=== PATIENT | male | born 2000 | race African-American/Black ===

== ENCOUNTER 2021-10-29 14:31 | Emergency (ER) | payer SELFPAY ==
[2021-10-29] MEDS ORDERED: ONDANSETRON 4 MG (ODT) TAB ONE (15:44)
--- NOTE | 2021-10-29 16:26 | EDPHYS ---
Physician Documentation [facility] Name: Jairo Duckworth Age: 21 yrs Sex: Male : 2000 Arrival Date: 10/29/2021 Time: 14:34 Bed DIS1 Private MD: ED Physician Ryne Ventura HPI: 10/29 15:15 This 21 yrs old Black Male presents to ER via Ambulatory with complaints of Nausea. cp 15:15 The patient presents to the emergency department with nausea, that is mild. Onset: The cp symptoms/episode began/occurred 2 day(s) ago. Possible causes: unknown. Associated signs and symptoms: Pertinent positives: nasal congestion, fatigue, Pertinent negatives: diarrhea, fever, vomiting, cough. Severity of symptoms: in the emergency department the symptoms are unchanged despite home interventions. Historical: - Allergies: 14:46 No Known Allergies; ap3 - Home Meds: 14:46 None [Active]; ap3 - PMHx: 14:46 None; ap3 - Immunization history:: Client reports having NOT received the Covid vaccine. - Social history:: Smoking status: Patient denies any tobacco usage or history of. Patient uses street drugs, marijuana. ROS: 15:20 Constitutional: Positive for fatigue, Negative for body aches, chills, fever, poor PO cp intake. 15:20 Eyes: Negative for injury, pain, redness, and discharge. cp 15:20 ENT: Positive for nasal congestion, Negative for drainage from ear(s), ear pain, sore throat, difficulty swallowing, difficulty handling secretions. 15:20 Respiratory: Negative for cough, shortness of breath, wheezing. 15:20 Abdomen/GI: Positive for nausea, Negative for abdominal pain, vomiting, diarrhea, constipation. 15:20 Neuro: Negative for altered mental status, headache, weakness. 15:20 All other systems are negative. Exam: 15:20 Constitutional: The patient appears in no acute distress, alert, awake, comfortable, cp non-toxic, well developed, well nourished. 15:20 Head/Face: Normocephalic, atraumatic. cp 15:20 Eyes: Periorbital structures: appear normal, Conjunctiva: normal, no exudate, no injection, Lids and lashes: appear normal, bilaterally. 15:20 ENT: External ear(s): are unremarkable, Ear canal(s): are normal, clear, TM's: dullness, bilaterally, Nose: is normal, Mouth: Lips: moist, Oral mucosa: pink and intact, moist, Posterior pharynx: Airway: no evidence of obstruction, patent, Tonsils: are normal in appearance, erythema, is not appreciated, exudate, is not appreciated. 15:20 Neck: Lymph nodes: no appreciated lymphadenopathy. 15:20 Chest/axilla: Inspection: normal. 15:20 Cardiovascular: Rate: tachycardic, Rhythm: regular. 15:20 Respiratory: the patient does not display signs of respiratory distress, Respirations: normal, no use of accessory muscles, no retractions, labored breathing, is not present, Breath sounds: are clear throughout, no decreased breath sounds, no stridor, no wheezing. 15:20 Abdomen/GI: Inspection: abdomen appears normal, Palpation: abdomen is soft and non-tender, in all quadrants. Vital Signs: 14:45 BP 118 / 78; Pulse 117; Resp 17; Temp 98.8; Pulse Ox 100% ; Weight 83.91 kg; Height 6 ap3 ft. 0 in. (182.88 cm); 15:40 BP 120 / 69; Pulse 88; Resp 16; Temp 98.2; Pulse Ox 99% on R/A; iw 14:45 Body Mass Index 25.09 (83.91 kg, 182.88 cm) ap3 MDM: 14:50 Patient medically screened. cp 15:30 Differential diagnosis: gastritis, viral gastroenteritis, gastroenteritis, influenza, cp COVID-19. 16:25 Data reviewed: vital signs, nurses notes, lab test result(s). cp 16:25 Counseling: I had a detailed discussion with the patient and/or guardian regarding: the cp historical points, exam findings, and any diagnostic results supporting the discharge/admit diagnosis, lab results, to return to the emergency department if symptoms worsen or persist or if there are any questions or concerns that arise at home. 10/29 15:08 Order name: COVID-19 SARS RT PCR (Document "Date of Onset" if Symptomatic); Complete cp Time: 16:19 10/29 16:19 Interpretation: Reviewed. cp 10/29 15:08 Order name: Influenza Screen (a \\T\\ B); Complete Time: 16:19 cp 10/29 16:19 Interpretation: Reviewed. cp Administered Medications: 15:42 Drug: Zofran (Ondansetron) 4 mg Route: PO; iw 16:30 Follow up: Response: No adverse reaction aa5 Disposition Summary: 10/29/21 16:25 Discharge Ordered Location: Home cp Problem: new cp Symptoms: have improved cp Condition: Stable cp Diagnosis - Nausea cp Followup: cp - With: Private Physician - When: 1 - 2 days - Reason: Worsening of condition Discharge Instructions: - Discharge Summary Sheet cp - Nausea, Adult cp Forms: - Medication Reconciliation Form cp - Thank You Letter cp - Work release form iw - Antibiotic Education cp - Prescription Opioid Use cp Prescriptions: - Zofran 4 mg Oral Tablet - take 1 tablet by ORAL route every 12 hours As needed; 10 tablet; Refills: 0, cp Product Selection Permitted Addendum: 10/30/2021 23:25 Co-signature as Attending Physician, Ryne Ventura MD. r n Signatures: Dispatcher [employer] Clara Olson RN RN iw Ryne Ventura MD MD rn Page, Corey, PA PA Stephanie Valenzuela RN RN ap3 Leslie Castillo RN aa5
--- NOTE | 2021-10-29 16:26 | ER ---
Nurse's Notes [facility] Name: Jairo Duckworth Age: 21 yrs Sex: Male : 2000 Arrival Date: 10/29/2021 Time: 14:34 Bed DIS1 Private MD: Diagnosis: Nausea Presentation: 10/29 14:45 Chief complaint: Patient states: he has been feeling tired and weak lately. patient ap3 states he is sometimes nauseous as well. Patient also reports congestion. Coronavirus screen: Client presents with at least one sign or symptom that may indicate coronavirus-19. Ebola Screen: No symptoms or risks identified at this time. Initial Sepsis Screen: Does the patient meet any 2 criteria? No. Patient's initial sepsis screen is negative. Does the patient have a suspected source of infection? No. Patient's initial sepsis screen is negative. Risk Assessment: Do you want to hurt yourself or someone else? Patient reports no desire to harm self or others. Onset of symptoms was October 27, 2021. 14:45 Method Of Arrival: Ambulatory ap3 14:45 Acuity: KIRBY 4 ap3 Triage Assessment: 14:47 General: Appears in no apparent distress. Behavior is calm, cooperative. Pain: Denies ap3 pain. Neuro: Level of Consciousness is awake, alert, obeys commands, Oriented to person, place, time, situation, Appropriate for age Gait is steady, Speech is normal. Cardiovascular: Patient's skin is warm and dry. Respiratory: Airway is patent Respiratory effort is even, unlabored. GI: Reports nausea. Historical: - Allergies: 14:46 No Known Allergies; ap3 - Home Meds: 14:46 None [Active]; ap3 - PMHx: 14:46 None; ap3 - Immunization history:: Client reports having NOT received the Covid vaccine. - Social history:: Smoking status: Patient denies any tobacco usage or history of. Patient uses street drugs, marijuana. Screenin:47 Abuse screen: Denies threats or abuse. Nutritional screening: No deficits noted. ap3 Tuberculosis screening: No symptoms or risk factors identified. Fall Risk None identified. Assessment: 15:00 General: Appears comfortable, Behavior is calm, cooperative, Reports fatigue for. Pain: aa5 Denies pain. Neuro: Level of Consciousness is awake, alert, obeys commands, Oriented to person, place, time, situation. Cardiovascular: Heart tones S1 S2 present Rhythm is regular. Respiratory: Airway is patent Respiratory effort is even, unlabored, Respiratory pattern is regular, symmetrical. GI: Abdomen is non-distended, Bowel sounds present X 4 quads. Abd is soft and non tender X 4 quads. Reports nausea. : No signs and/or symptoms were reported regarding the genitourinary system. EENT: No signs and/or symptoms were reported regarding the EENT system. Derm: Skin is dry, Skin is normal, Skin temperature is warm. Musculoskeletal: Range of motion: intact in all extremities. 15:41 General: Appears in no apparent distress. Behavior is calm, cooperative. Neuro: iw Kidd Agitation-Sedation Scale (RASS): Level of Consciousness is awake, alert, obeys commands, Oriented to person, place, time, situation. Cardiovascular: Patient's skin is warm and dry. Respiratory: Airway is patent. GI: Abdomen is non-distended. Musculoskeletal: Range of motion: intact in all extremities. 16:30 Neuro: Level of Consciousness is awake, alert, obeys commands, Oriented to person, aa5 place, time, situation. Respiratory: Airway is patent Respiratory effort is even, unlabored, Respiratory pattern is regular, symmetrical. Derm: Skin is dry, Skin is normal, Skin temperature is warm. Vital Signs: 14:45 BP 118 / 78; Pulse 117; Resp 17; Temp 98.8; Pulse Ox 100% ; Weight 83.91 kg; Height 6 ap3 ft. 0 in. (182.88 cm); 15:40 BP 120 / 69; Pulse 88; Resp 16; Temp 98.2; Pulse Ox 99% on R/A; iw 14:45 Body Mass Index 25.09 (83.91 kg, 182.88 cm) ap3 ED Course: 14:34 Patient arrived in ED. rg4 14:38 Enoch Tariq PA is PHCP. cp 14:38 Ryne Ventura MD is Attending Physician. cp 14:46 Triage completed. ap3 14:47 Arm band placed on right wrist. ap3 14:51 Leslie Castillo, RN is Primary Nurse. aa5 15:00 Patient has correct armband on for positive identification. aa5 15:15 Influenza Screen (a \\T\\ B) Sent. iw 15:15 COVID-19 SARS RT PCR (Document "Date of Onset" if Symptomatic) Sent. iw 16:25 No provider procedures requiring assistance completed. Patient did not have IV access aa5 during this emergency room visit. Administered Medications: 15:42 Drug: Zofran (Ondansetron) 4 mg Route: PO; iw 16:30 Follow up: Response: No adverse reaction aa5 Medication: 14:47 VIS not applicable for this client. ap3 Outcome: 16:25 Discharge ordered by . stacey 16:30 Discharged to home ambulatory. aa5 16:30 Condition: good 16:30 Discharge instructions given to patient, Instructed on discharge instructions, follow up and referral plans. medication usage, Demonstrated understanding of instructions, follow-up care, medications, Prescriptions given X 1. 16:33 Patient left the ED. aa5 Signatures: Clara Gibbons, RN RN iw Leslie Castillo RN RN aa5 Enoch Tariq PA PA cp Garcia, Rubi rg4 Stephanie Colon RN RN ap3
[2021-10-29 17:10] VITALS: BP 120/69; TEMP 98.2; O2SAT 99
== END 2021-10-29 16:33 | disposition home or self-care (01) ==
LOC: ER 14:31
DX: R11.0 Nausea (principal); R53.83 Other fatigue; R09.81 Nasal congestion; Z20.822 Contact with and (suspected) exposure to COVID-19
CPT/HCPCS: 87804; 99283; U0003